=== PATIENT | female | born 1950 | race Caucasian/White ===

== ENCOUNTER → 2018-10-14 | Outpatient (CLI) | payer OTHER | LOC: CAT 14:37 | DX: Z13.6 Encounter for screening for cardiovascular disorders (principal); E78.00 Pure hypercholesterolemia, unspecified; I25.10 Atherosclerotic heart disease of native coronary artery without angina pectoris ==

== ENCOUNTER → 2019-10-15 | Outpatient (CLI) | payer OTHER | LOC: SJCVC 10:44 | PROVIDERS: ATTEND Internal Medicine Cardiovascular Disease | DX: R94.31 Abnormal electrocardiogram [ECG] [EKG] (principal); I44.4 Left anterior fascicular block; R00.1 Bradycardia, unspecified; I47.1 Supraventricular tachycardia; I10 Essential (primary) hypertension; E78.00 Pure hypercholesterolemia, unspecified; Z79.899 Other long term (current) drug therapy; Z82.49 Family history of ischemic heart disease and other diseases of the circulatory system ==

== ENCOUNTER → 2019-11-27 | Outpatient (CLI) | payer OTHER | LOC: SJCVCIMAG 14:06 | PROVIDERS: ATTEND Internal Medicine Cardiovascular Disease | DX: I10 Essential (primary) hypertension (principal); E78.5 Hyperlipidemia, unspecified; Z79.899 Other long term (current) drug therapy ==

== ENCOUNTER → 2020-01-27 | Outpatient (CLI) | payer OTHER | LOC: SJCVC 13:53 | PROVIDERS: ATTEND Internal Medicine Cardiovascular Disease | DX: R94.31 Abnormal electrocardiogram [ECG] [EKG] (principal); I48.91 Unspecified atrial fibrillation; R93.1 Abnormal findings on diagnostic imaging of heart and coronary circulation; I10 Essential (primary) hypertension; E78.00 Pure hypercholesterolemia, unspecified; I47.1 Supraventricular tachycardia; Z79.899 Other long term (current) drug therapy; Z88.5 Allergy status to narcotic agent; Z88.0 Allergy status to penicillin; Z88.2 Allergy status to sulfonamides; Z82.49 Family history of ischemic heart disease and other diseases of the circulatory system ==

== ENCOUNTER → 2020-02-03 | Outpatient (CLI) | payer OTHER ==
[~2020-02-03] VITALS: Ht 170.2 cm; Wt 108.0 kg
[~2020-02-03] MED LIST: BYSTOLIC 5 MG5 M1 PO; ELIQUIS5 MG PO; IRBESARTAN300 MG PO; LEVO-T100 MCG PO; LIPITOR20 MG PO; NORVASC5 MG PO; PACERONE200 MG PO
[2020-02-03 07:24] VITALS: BP 133/81
--- NOTE | 2020-02-03 08:57 | TEE ---
[facility] [place] [address] TRANSESOPHAGEAL ECHOCARDIOGRAM Name: RYLAND GOLDEN Room #: REG [facility]#: [id number] Admission: 02/03/20 Attend Phys: Smooth Barrientos MD, Discharge: Date of : 48 Report #: [id number] THIS REPORT FOR: cc: Anneliese Ann Stephanie P. DO Santiago, Patrick MD [facility] ~ APPROVED REPORT Study performed: 02/03/2020 07:56:45 EXAM: Comprehensive 2D, Doppler, and color-flow Echocardiogram Patient Location: Out-Patient Room #: 9 Status: routine BSA: 2.18 HR: 93 bpm BP: 132/90 mmHg Rhythm: Atrial Fibrillation Other Information Study Quality: Excellent Indications Atrial Fibrillation Echo Enhancing Agent Indication: Rule out Shunt Agent(s) / Amount(s) Used: Agitated Saline 7 cc Procedure After obtaining informed consent, patient underwent transesophageal echo in the [employer]. Type of Sedation : Conscious Sedation Sedation was administered by Nurse. Sedation was achieved intravenously with: Versed (6 mg) Fentanyl (75 mcg) Transesophageal probe was inserted and advanced into esophagus without difficulty by Smooth Barrientos MD. Echo enhancement indication: R/O Septal defect. Echo enhancement agent administered: Agitated Saline The NANO was performed without complications. Synchronized Cardioversion acheived with 120 Joules after 1 attempt(s). [facility] [address] [place] [address] TRANSESOPHAGEAL ECHOCARDIOGRAM Name: RYLAND GOLDEN Room #: REG CL [facility]#: [id number] Admission: 02/03/20 Attend Phys: Smooth Barrientos, Discharge: Date of : 48 Report #: [id number] Rhythm following Synchronized Cardioversion: Sinus Bradycardia Throughout the procedure, the blood pressure, pulse oximetry, cardiac rhythm, and rate were monitored. The patient tolerated the procedure without adverse effects. Recovery from conscious sedation was uneventful and vital signs were stable. Left Ventricle The left ventricle is normal size. There is normal LV segmental wall motion. There is normal left ventricular wall thickness. The left ventricular systolic function is normal. The left ventricular ejection fraction is within the normal range. LVEF is 55-60%. Right Ventricle The right ventricle is normal size. The right ventricular systolic function is normal. Atria Left atrium is dilated. Interatrial septum is intact without evidence of ASD or PFO. The right atrium size is normal. Aortic Valve The aortic valve is normal in structure. Trace aortic regurgitation. There is no aortic valvular stenosis. Mitral Valve The mitral valve is normal in structure. Mild mitral regurgitation. No evidence of mitral valve stenosis. Tricuspid Valve The tricuspid valve is normal in structure. Trace to mild tricuspid regurgitation. Pulmonic Valve The pulmonary valve is normal in structure. There is no pulmonic valvular regurgitation. Great Vessels The aortic root is normal in size. Pericardium There is no pericardial effusion. <Conclusion> Atrial fibrillation at baseline Consent was obtained [facility] [employer] [address] [place] [address] TRANSESOPHAGEAL ECHOCARDIOGRAM Name: CHICORYLAND Room #: REG [facility]#: [id number] Admission: 02/03/20 Attend Phys: Smooth Barrientos, Discharge: Date of : 48 Report #: [id number] Esophageal probe was advanced without difficulty Left atrial appendage/small no evidence of clot or mass detected Normal atrial size Normal mitral valve structure/ mild mitral valve insufficiency Tricuspid aortic valve/normal function Trace tricuspid valve insufficiency EF 55%, no segmental wall motion abnormality No evidence of ASD/VSD by color flow/bubble study No pericardial effusion Patient was successfully cardioverted to sinus rhythm after 120 J biphasic mode Patient tolerated procedure well Twelve-lead ECG pending <ELECTRONICALLY SIGNED> By: Smooth Barrientos MD, FACC 02/03/2056 5 5 Smooth Barrientos MD, FACC /INF
--- NOTE | 2020-02-03 09:54 | EKG ---
[place] [address] [facility] [place] [address] ELECTROCARDIOGRAM REPORT Name: RYLAND GOLDEN Room #: REG [facility]#: [id number] Admission: 02/03/20 Attend Phys: Smooth Barrientos MD, Discharge: Date of : 48 Report #: [id number] [facility] Test Date: 2020-02-03 Test Time: 08:27:26 Pat Name: RYLAND GOLDEN Department: Room: Gender: F Sonography Technologist: FRANCISCO : 1950 Requested By: Smooth Barrientos Order Number: [id number] MD: Smooth Barrientos Measurements Intervals [place] Rate: 47 P: 26 MD: 198 QRS: -26 QRSD: 105 T: 42 QT: 477 QTc: 422 Interpretive Statements Sinus bradycardia Atrial premature complex Borderline left axis deviation Compared to ECG 08/11/2003 09:23:16 Atrial premature complex(es) now present Sinus rhythm no longer present Electronically Signed On 02-03-2020 9:54:00 MEDICAL APPLIANCE MAKER by Smooth Barrientos [email or web address] <ELECTRONICALLY SIGNED> By: Smooth Barrientos MD, [facility] 02/03/20 0954 6 6 Smooth Barrientos MD, FAC /EPI
== END | disposition home or self-care (01) ==
LOC: CATH 06:28
PROVIDERS: ATTEND Internal Medicine
DX: I48.91 Unspecified atrial fibrillation (principal); I08.3 Combined rheumatic disorders of mitral, aortic and tricuspid valves; I10 Essential (primary) hypertension; E78.00 Pure hypercholesterolemia, unspecified; E78.5 Hyperlipidemia, unspecified; Z98.890 Other specified postprocedural states; Z79.899 Other long term (current) drug therapy; Z90.710 Acquired absence of both cervix and uterus; Z82.49 Family history of ischemic heart disease and other diseases of the circulatory system

== ENCOUNTER → 2020-02-09 | Outpatient (CLI) | payer OTHER | LOC: SJCVC 12:02 | PROVIDERS: ATTEND Internal Medicine Cardiovascular Disease | DX: R94.31 Abnormal electrocardiogram [ECG] [EKG] (principal); I48.91 Unspecified atrial fibrillation; I47.1 Supraventricular tachycardia; R93.1 Abnormal findings on diagnostic imaging of heart and coronary circulation; D68.59 Other primary thrombophilia; I10 Essential (primary) hypertension; E78.00 Pure hypercholesterolemia, unspecified; Z79.899 Other long term (current) drug therapy; Z88.1 Allergy status to other antibiotic agents; Z88.5 Allergy status to narcotic agent; Z88.0 Allergy status to penicillin ==

== ENCOUNTER 2020-03-12 13:48 | Emergency (ER) | payer OTHER ==
[~2020-03-12] VITALS: Ht 170.2 cm; Wt 108.9 kg
[2020-03-12 14:32] LABS: ABSOLUTE NEUTROPHILS 4.3 thou/uL (1.4-8.2); BASOPHILS 0.9 % (0.0-2.0); EOSINOPHILS 1.1 % (0.0-3.0); HEMATOCRIT 40.2 % (37.0-47.0); HEMOGLOBIN 13.1 gm/dL (12.0-15.0); MCH 28.9 pg (26.0-34.0); MCHC 32.7 g/dL (28.0-37.0); MCV 88.3 fL (80.0-100.0); PLATELET COUNT 319 thou/uL (150-400); RBC 4.55 mil/uL (4.20-5.00); WBC 6.7 thou/uL (4.0-11.0)
[2020-03-12 14:40] LABS: ANION GAP 11 mmol/L (7-16); BUN 19 mg/dL (7-18); CALCIUM 10.6 mg/dL (8.5-10.1); CHLORIDE 105 mmol/L (98-107); CO2 25 mmol/L (21-32); CREATININE 1.1 mg/dL (0.6-1.0); GLUCOSE 113 mg/dL (74-106); POTASSIUM 4.1 mmol/L (3.5-5.1); SODIUM 141 mmol/L (136-145)
[2020-03-12 14:46] LABS: APTT 28.7 Seconds (24.5-32.8); D-DIMER 0.33 ug/mLFEU (0.19-0.50); PROTIME 10.4 Seconds (9.3-11.4)
[2020-03-12 14:50] LABS: ALBUMIN 4.2 g/dL (3.4-5.0); MAGNESIUM 2.1 mg/dL (1.8-2.4); SGOT 15 U/L (15-37); SGPT 33 U/L (14-59); TOTAL BILIRUBIN 0.4 mg/dL (0.2-1.0); TOTAL PROTEIN 7.4 g/dL (6.4-8.2); TROPONIN-I <0.06 ng/mL (<0.06)
[2020-03-12] MEDS ORDERED: METOPROLOL SUCC50 MG PO (15:54)
[2020-03-12 16:28] VITALS: BP 149/89
--- NOTE | 2020-03-14 07:43 | EKG ---
[place] [address] [facility] [place] [address] ELECTROCARDIOGRAM REPORT Name: RYLAND GOLDEN Room #: DEP [facility]#: [id number] Admission: 03/12/20 Attend Phys: Discharge: 03/12/20 Date of : 48 Report #: [id number] [facility] ED Test Date: 2020-03-12 Test Time: 14:03:39 Pat Name: RYLAND GOLDEN Department: Room: Gender: F Linoleum Printer: JIMMY : 1950 Requested By: Viki Valiente Order Number: [id number] MD: Smooth Barrientos Measurements Intervals [place] Rate: 93 P: AL: QRS: -37 QRSD: 95 T: 65 QT: 382 QTc: 476 Interpretive Statements Atrial fibrillation Inferior infarct, old Compared to ECG 02/03/2020 08:27:26 Myocardial infarct finding now present Sinus bradycardia no longer present Atrial premature complex(es) no longer present Electronically Signed On 03-14-2020 7:43:12 DRY CLEANING MANAGER by Smooth Barrientos [email or web address] <ELECTRONICALLY SIGNED> By: Smooth Barrientos MD, [facility] 03/14/20 0743 1403 1403 Smooth Barrientos MD, FACC /EPI
== END 2020-03-12 16:24 | disposition home or self-care (01) ==
LOC: ER 13:48
PROVIDERS: Physician Assistant
DX: R00.2 Palpitations (principal); I48.91 Unspecified atrial fibrillation; R60.9 Edema, unspecified; I10 Essential (primary) hypertension; E78.5 Hyperlipidemia, unspecified; Z90.710 Acquired absence of both cervix and uterus; Z90.89 Acquired absence of other organs; Z79.899 Other long term (current) drug therapy; Z88.0 Allergy status to penicillin; Z88.1 Allergy status to other antibiotic agents; Z88.2 Allergy status to sulfonamides

== ENCOUNTER → 2020-03-17 | Outpatient (CLI) | payer OTHER ==
[~2020-03-17] MED LIST changes: +METOPROLOL SUCC50 MG PO
== END ==
LOC: SJCVC 13:17
PROVIDERS: ATTEND Internal Medicine Cardiovascular Disease
DX: R94.31 Abnormal electrocardiogram [ECG] [EKG] (principal); I48.91 Unspecified atrial fibrillation; E78.00 Pure hypercholesterolemia, unspecified; I47.1 Supraventricular tachycardia; E11.9 Type 2 diabetes mellitus without complications; E66.9 Obesity, unspecified; I10 Essential (primary) hypertension; E78.5 Hyperlipidemia, unspecified; Z86.16 Personal history of COVID-19; Z88.5 Allergy status to narcotic agent; Z88.0 Allergy status to penicillin; Z88.2 Allergy status to sulfonamides; Z79.899 Other long term (current) drug therapy

== ENCOUNTER → 2020-03-22 | Outpatient (CLI) | payer OTHER ==
[2020-03-22 10:27] LABS: ABSOLUTE NEUTROPHILS 2.6 thou/uL (1.4-8.2); BASOPHILS 0.5 % (0.0-2.0); EOSINOPHILS 2.9 % (0.0-3.0); HEMATOCRIT 41.4 % (37.0-47.0); HEMOGLOBIN 13.5 gm/dL (12.0-15.0); LYMPHOCYTES 45.4 % (24.0-44.0); MCH 28.9 pg (26.0-34.0); MCHC 32.6 g/dL (28.0-37.0); MCV 88.4 fL (80.0-100.0); MONOCYTES 7.9 % (1.0-8.0); PLATELET COUNT 317 thou/uL (150-400); POLYS 43.3 % (36.0-66.0); RBC 4.68 mil/uL (4.20-5.00); RDW 13.7 % (10.5-14.5); WBC 5.9 thou/uL (4.0-11.0)
[2020-03-22 10:54] LABS: ALBUMIN 4.1 g/dL (3.4-5.0); CALCIUM 10.5 mg/dL (8.5-10.1); CREATININE 1.1 mg/dL (0.6-1.0); POTASSIUM 4.5 mmol/L (3.5-5.1); TOTAL BILIRUBIN 0.9 mg/dL (0.2-1.0); TOTAL PROTEIN 7.1 g/dL (6.4-8.2)
== END ==
LOC: CAT 09:58
PROVIDERS: ATTEND Internal Medicine Cardiovascular Disease
DX: I48.91 Unspecified atrial fibrillation (principal)

== ENCOUNTER → 2020-03-24 | Outpatient (CLI) | payer OTHER ==
[~2020-03-24] VITALS: Ht 170.2 cm; Wt 108.9 kg
[2020-03-24 07:29] VITALS: BP 147/82
[2020-03-24 07:34] LABS: ABSOLUTE NEUTROPHILS 2.5 thou/uL (1.4-8.2); BASOPHILS 0.7 % (0.0-2.0); EOSINOPHILS 2.6 % (0.0-3.0); HEMATOCRIT 38.3 % (37.0-47.0); HEMOGLOBIN 12.7 gm/dL (12.0-15.0); LYMPHOCYTES 44.3 % (24.0-44.0); MCHC 33.2 g/dL (28.0-37.0); MCV 87.4 fL (80.0-100.0); MONOCYTES 8.4 % (1.0-8.0); PLATELET COUNT 282 thou/uL (150-400); RBC 4.39 mil/uL (4.20-5.00); RDW 13.6 % (10.5-14.5); WBC 5.8 thou/uL (4.0-11.0)
[2020-03-24 07:38] LABS: CALCIUM 10.1 mg/dL (8.5-10.1); POTASSIUM 4.3 mmol/L (3.5-5.1)
[2020-03-24 07:44] LABS: ALBUMIN 3.9 g/dL (3.4-5.0); TOTAL BILIRUBIN 0.6 mg/dL (0.2-1.0); TOTAL PROTEIN 6.6 g/dL (6.4-8.2)
[2020-03-24 08:51] LABS: APTT 24.7 Seconds (24.5-32.8); PROTIME 9.8 Seconds (9.3-11.4)
--- NOTE | 2020-03-25 12:00 | P ---
[facility] [place] [address] PROCEDURE REPORT Name: RYLAND GOLDEN Room #: REG [facility]#: [id number] Admission: 03/24/20 Attend Phys: Yash Bautista MD Discharge: Date of : 48 Report #: [id number] THIS REPORT FOR: cc: Anneliese Ann Stephanie P. DO Couchonnal, Luis F. MD ~ DATE OF SERVICE: 03/24/2020 PREOPERATIVE DIAGNOSIS: Atrial fibrillation. POSTOPERATIVE DIAGNOSIS: Atrial fibrillation. PROCEDURES PERFORMED: 1. Atrial fibrillation ablation, CPT code 31475. 2. Programmed stimulation and pacing after IV drug infusion, CPT code 34347. 3. 3D mapping, CPT code 33544. 4. Intracardiac echo, CPT code 11284. 5. Focal ablation, CPT code 28137. HISTORY: The patient is a 69-year-old with history of hypertension, obesity, recently had COVID-19 related pneumonia and has new onset atrial fibrillation, has failed cardioversion and antiarrhythmic drug therapy. She is here for AFib ablation. ANESTHESIA: The patient underwent general anesthesia with no anesthesia related complications. DESCRIPTION OF PROCEDURE: The patient underwent informed consent. We discussed the details of the procedure including the risks, which include but not limited to bleeding, vascular damage, stroke, CT as well as cardiac perforation. She understood these risks and is willing to proceed. The patient was brought to EP laboratory in a fasting and sedated state, prepped and draped in a sterile fashion. I obtained access to the right femoral vein x 3, placing an 8, 9 and 7-Romanian short sheath using the modified Seldinger technique. Next, under fluoroscopy, decapolar catheter was placed easily in the coronary sinus for left atrial pacing and recording and an ICE catheter was placed into the right atrium. At baseline, the patient was in atrial fibrillation with a controlled ventricular response. Using intracardiac ultrasound, I created a 3D geometry of the left atrium with evidence of two left and two right pulmonary veins. The right middle pulmonary vein had a more inferior takeoff than usual and was initially confused for the right inferior pulmonary vein. Next, the patient was systemically heparinized and a transseptal was performed using an SL1 sheath and a [place] needle. This was straightforward and I exchanged for the cryo sheath and via the cryo sheath, I [address] [address] PROCEDURE REPORT Name: RYLAND GOLDEN Room #: REG RAD[facility] Michael#: [id number] Admission: 03/24/20 Attend Phys: Yash Bautista MD Discharge: Date of : 48 Report #: [id number] placed a Lasso catheter and created a 3D geometry of the left atrium and a voltage map. Next, the cryoballoon was placed into the left atrium and pulmonary vein isolation was initiated. The left superior pulmonary vein underwent a 4-minute freeze isolating within 27 seconds of the first freeze, the left inferior pulmonary vein underwent two 4-minute freezes and the vein isolated at 60 seconds during the second freeze. The right superior pulmonary vein underwent a 300 second freeze and isolated at 150 seconds. The right inferior pulmonary vein underwent two 4-minute freezes and isolated at 23 seconds during the second freeze. The patient remained in atrial fibrillation. Therefore, we decided to perform a posterior wall isolation in addition to the AFib ablation. I performed 5 freezes anchored from the left superior pulmonary vein, each of these freezes was of 3 minutes' duration. Next, a repeat voltage map was created and there was clearly isolation of all the pulmonary veins and there was also evidence of posterior wall isolation as well. At this point, the patient underwent a 200 joule synchronized cardioversion with advent of sinus rhythm. The patient was demonstrating sinus bradycardia, sinus cycle length of 1710 milliseconds, DE interval 260 milliseconds, QRS duration 100 milliseconds, QT interval 570 milliseconds. Atrial pacing was performed and AV block was noted at 610 milliseconds. AV rajinder ERP was noted at 540 milliseconds at [address] cycle length and the sinus node recovery time was 2200 milliseconds. Isoproterenol infusion was initiated at 2 mcg per minute. AV block was noted to be 570 milliseconds. Atrial ERP was noted to be 240 milliseconds at [address] cycle length. Aggressive atrial burst pacing was performed down to 250 milliseconds and I could not induce any atrial fibrillation, atrial flutter nor any SVT. Of note, the patient had had a prior AVNRT ablation approximately 10-15 years ago at another hospital. There is no evidence of recurrent AVNRT. As such, using intracardiac ultrasound, there was no evidence of pericardial effusion. The patient received systemic protamine and once the ACT was within acceptable range, catheters and sheaths were pulled. Hoiyyy-jv-rrejw suture was deployed to the right groin region. The patient awoke neurologically and hemodynamically intact. No complications and no significant bleeding. CONCLUSIONS: 1. Successful atrial fibrillation ablation. 2. Successful focal ablation with posterior wall isolation. 3. Comprehensive EP study with no inducible arrhythmias on or off isoproterenol. <ELECTRONICALLY SIGNED> By: Yash Bautista MD 03/25/20 1200 1222 1338 Yash Bautista MD /nt
== END | disposition home or self-care (01) ==
LOC: CATH 06:27
PROVIDERS: ATTEND Internal Medicine Cardiovascular Disease
DX: I48.91 Unspecified atrial fibrillation (principal); R93.1 Abnormal findings on diagnostic imaging of heart and coronary circulation; I10 Essential (primary) hypertension; E78.5 Hyperlipidemia, unspecified; E11.9 Type 2 diabetes mellitus without complications; E78.00 Pure hypercholesterolemia, unspecified; E66.9 Obesity, unspecified; G47.33 Obstructive sleep apnea (adult) (pediatric); I47.1 Supraventricular tachycardia; Z98.890 Other specified postprocedural states; Z79.899 Other long term (current) drug therapy; Z68.37 Body mass index [BMI] 37.0-37.9, adult; Z90.710 Acquired absence of both cervix and uterus; Z86.16 Personal history of COVID-19; Z87.01 Personal history of pneumonia (recurrent); Z88.1 Allergy status to other antibiotic agents; Z79.01 Long term (current) use of anticoagulants; Z88.0 Allergy status to penicillin; Z88.2 Allergy status to sulfonamides; Z82.49 Family history of ischemic heart disease and other diseases of the circulatory system
CPT/HCPCS: 62110; 62900; 70005

== ENCOUNTER → 2020-04-12 | Outpatient (CLI) | payer OTHER | LOC: SJCVC 09:33 | PROVIDERS: ATTEND Internal Medicine Cardiovascular Disease | DX: R94.31 Abnormal electrocardiogram [ECG] [EKG] (principal); I48.91 Unspecified atrial fibrillation; E11.9 Type 2 diabetes mellitus without complications; E66.9 Obesity, unspecified; I10 Essential (primary) hypertension; E78.5 Hyperlipidemia, unspecified; E78.00 Pure hypercholesterolemia, unspecified; Z86.16 Personal history of COVID-19; Z79.899 Other long term (current) drug therapy; Z88.5 Allergy status to narcotic agent; Z88.0 Allergy status to penicillin; Z88.2 Allergy status to sulfonamides ==

== ENCOUNTER → 2020-04-13 | Outpatient (CLI) | payer OTHER ==
[~2020-04-13] VITALS: Ht 170.2 cm; Wt 107.7 kg
[2020-04-13 10:31] VITALS: BP 136/92
[2020-04-13 10:35] LABS: MCH 29.1 pg (26.0-34.0); MCHC 33.5 g/dL (28.0-37.0); MCV 87.1 fL (80.0-100.0); RBC 4.82 mil/uL (4.20-5.00); RDW 13.2 % (10.5-14.5); WBC 5.2 thou/uL (4.0-11.0)
[2020-04-13 10:47] LABS: CALCIUM 10.6 mg/dL (8.5-10.1); CREATININE 1.3 mg/dL (0.6-1.0); POTASSIUM 4.5 mmol/L (3.5-5.1)
[2020-04-13 10:51] LABS: APTT 29.1 Seconds (24.5-32.8); PROTIME 10.1 Seconds (9.3-11.4)
[2020-04-13 10:53] LABS: TOTAL BILIRUBIN 0.4 mg/dL (0.2-1.0); TOTAL PROTEIN 7.4 g/dL (6.4-8.2)
--- NOTE | 2020-04-13 11:46 | NUR ---
PT RECOVERING FROM CARDIOVERSION IN BED, PT'S AT [facility]. VITAL SIGNS ARE STABLE, PT IN NSR. NO COMPLICATIONS NOTED, PT DENIES CHEST PAIN. WILL CONTINUE TO MONITOR.
--- NOTE | 2020-04-13 13:42 | EKG ---
[place] [address] [facility] [place] [address] ELECTROCARDIOGRAM REPORT Name: [place]IC[place] [id number] Admission: 04/13/20 Attend Phys: Yash Bautista MD Discharge: Date of : 48 Report #: [id number] [facility] Test Date: 2020-04-13 Test Time: 11:53:44 Pat Name: RYLAND GOLDEN Department: Room: Gender: F Surgery Specialist: SBULOW : 1950 Requested By: Yash Bautista Order Number: [id number] MD: Smooth Barrientos Measurements Intervals [place] Rate: 54 P: -4 FL: 196 QRS: -39 QRSD: 96 T: 51 QT: 460 QTc: 436 Interpretive Statements Sinus rhythm Inferior infarct, old Probable anterior infarct, age indeterminate Compared to ECG 03/12/2020 14:03:39 Atrial fibrillation no longer present Myocardial infarct finding still present Electronically Signed On 04-13-2020 13:42:33 HUMAN RESOURCES ADVISOR by Smooth Barrientos [email or web address] <ELECTRONICALLY SIGNED> By: Smooth Barrientos MD, [facility] 04/13/20 1342 1153 1153 Smooth Barrientos MD, [facility] /EPI
--- NOTE | 2020-04-15 12:53 | P ---
[facility] [place] [address] PROCEDURE REPORT Name: RYLAND GOLDEN [id number] Admission: 04/13/20 Attend Phys: Yash Bautista MD Discharge: Date of : 48 Report #: [id number] THIS REPORT FOR: cc: Anneliese Ann,Yash Otto MD ~ DATE OF SERVICE: 04/13/2020 CARDIOVERSION PREOPERATIVE DIAGNOSIS: Atrial fibrillation. POSTOPERATIVE DIAGNOSIS: Atrial fibrillation. DESCRIPTION OF PROCEDURE: The patient underwent informed consent. She was then sedated by the Anesthesiology service. Once sedated, she underwent a 200 joule synchronized cardioversion with advent of sinus rhythm. There were no procedure related complications. CONCLUSIONS: Successful DC cardioversion with advent of sinus rhythm. <ELECTRONICALLY SIGNED> By: Yash Bautista MD 04/15/20 1253 1205 1257 Yash Bautista MD /nt
== END | disposition home or self-care (01) ==
LOC: CATH 09:28
PROVIDERS: ATTEND Internal Medicine Cardiovascular Disease
DX: I48.91 Unspecified atrial fibrillation (principal); I48.92 Unspecified atrial flutter; I10 Essential (primary) hypertension; E78.00 Pure hypercholesterolemia, unspecified; E78.5 Hyperlipidemia, unspecified; Z98.890 Other specified postprocedural states; Z79.899 Other long term (current) drug therapy; Z79.01 Long term (current) use of anticoagulants; Z90.710 Acquired absence of both cervix and uterus
CPT/HCPCS: 62110; 62900

== ENCOUNTER → 2020-05-04 | Outpatient (CLI) | payer OTHER | LOC: SJCVC 10:02 | PROVIDERS: ATTEND Internal Medicine Cardiovascular Disease | DX: R94.31 Abnormal electrocardiogram [ECG] [EKG] (principal); R00.1 Bradycardia, unspecified; I44.4 Left anterior fascicular block; I48.91 Unspecified atrial fibrillation; I10 Essential (primary) hypertension; E78.00 Pure hypercholesterolemia, unspecified; D68.59 Other primary thrombophilia; I47.1 Supraventricular tachycardia; R93.1 Abnormal findings on diagnostic imaging of heart and coronary circulation; Z86.16 Personal history of COVID-19; Z79.899 Other long term (current) drug therapy; Z88.1 Allergy status to other antibiotic agents; Z88.0 Allergy status to penicillin; Z88.2 Allergy status to sulfonamides ==

== ENCOUNTER → 2020-08-22 | Outpatient (CLI) | payer OTHER | LOC: SJCVC 13:27 | PROVIDERS: ATTEND Internal Medicine Cardiovascular Disease | DX: R94.31 Abnormal electrocardiogram [ECG] [EKG] (principal); I44.4 Left anterior fascicular block; R00.1 Bradycardia, unspecified; I25.10 Atherosclerotic heart disease of native coronary artery without angina pectoris; R93.1 Abnormal findings on diagnostic imaging of heart and coronary circulation; I10 Essential (primary) hypertension; E78.00 Pure hypercholesterolemia, unspecified; I48.91 Unspecified atrial fibrillation; D68.59 Other primary thrombophilia; R00.2 Palpitations; Z86.16 Personal history of COVID-19; Z88.0 Allergy status to penicillin; Z88.1 Allergy status to other antibiotic agents ==

== ENCOUNTER → 2020-12-27 | Outpatient (CLI) | payer OTHER | LOC: SJCVC 13:18 | PROVIDERS: ATTEND Internal Medicine Cardiovascular Disease | DX: R94.31 Abnormal electrocardiogram [ECG] [EKG] (principal); I45.10 Unspecified right bundle-branch block; I49.1 Atrial premature depolarization; I48.91 Unspecified atrial fibrillation; E11.9 Type 2 diabetes mellitus without complications; I10 Essential (primary) hypertension; E66.9 Obesity, unspecified; E78.00 Pure hypercholesterolemia, unspecified; Z88.0 Allergy status to penicillin; Z88.1 Allergy status to other antibiotic agents; Z79.899 Other long term (current) drug therapy; Z86.16 Personal history of COVID-19; Z82.49 Family history of ischemic heart disease and other diseases of the circulatory system ==

== ENCOUNTER → 2021-01-04 | Outpatient (CLI) | payer OTHER ==
--- NOTE | ~2021-01-04 | P ---
[facility] [place] [address] PROCEDURE REPORT Name: RYLAND GOLDEN Room #: REG RADHA [facility]#: [id number] Admission: 01/04/21 Attend Phys: Yash Bautista MD Discharge: Date of : 48 Report #: [id number] THIS REPORT FOR: cc: Anneliese Ann,Yash Otto MD ~ DATE OF SERVICE: 01/04/2021 PROCEDURE: Implantation of a loop recorder. PREOPERATIVE DIAGNOSIS: Atrial fibrillation. POSTOPERATIVE DIAGNOSIS: Atrial fibrillation. DESCRIPTION OF PROCEDURE: The patient was brought to the procedure room in a fasting and unsedated state. She underwent informed consent. She was prepped in a standard fashion. I injected lidocaine at the incision site. Incision was made. Device injected, tested and found to be functioning normally. A single layer of suture was performed and a dressing was placed. There were no procedure related complications. Implanted device was [employer] model number LNQ11, serial number [id number]. CONCLUSION: Successful implantation of an implantable loop recorder. By: [id number] Yash Bautista MD /nt
[2021-01-04 08:54] VITALS: BP 140/75
== END | disposition home or self-care (01) ==
LOC: CATH 07:06
PROVIDERS: ATTEND Internal Medicine Cardiovascular Disease
DX: I48.91 Unspecified atrial fibrillation (principal); R00.2 Palpitations; Z98.890 Other specified postprocedural states; Z79.899 Other long term (current) drug therapy; Z88.0 Allergy status to penicillin; Z88.2 Allergy status to sulfonamides; Z79.01 Long term (current) use of anticoagulants